=== PATIENT | male | born 1955 | race Caucasian/White ===

== ENCOUNTER 2018-08-21 15:04 | Emergency (ER) | payer OTHER ==
--- NOTE | 2018-08-21 15:14 | PDOC ---
Rapid Medical Evaluation Time Seen by Provider: 08/21/18 15:12 Medical Evaluation: Allergies Allergy/AdvReac Type Severity Reaction Status Date / Time No Known Allergies Allergy Verified 09/04/14 20:48 08/21/18 15:12 I have performed a brief in-person evaluation of the patient The patient presents with a chief complaint of: dizziness since Friday. Reports dizziness is triggered by change in position. Denies nausea, blurred vision , chest pain or shortness of breath Pertinent physical exam findings are: NAD heart S1s2 even and unlabored breathing no pedal edema I have ordered the following: Ekg, labs The patient will proceed to the ED for further evaluation. Discharge Disposition - Referrals Referrals: Ba Tesfaye MD [Primary Care Provider] - - Patient Instructions - Post Discharge Activity
[2018-08-21 15:16] VITALS: BMI 28.4
--- NOTE | 2018-08-21 15:50 | PDOC ---
History of Present Illness - General Chief Complaint: Lightheaded Stated Complaint: SENT BY PCP Time Seen by Provider: 08/21/18 15:12 History Source: Patient - History of Present Illness Initial Comments: The patient is 62M w/ a history of HLD, hypothyroidism, and HTN who presents from clinic for evaluation of bradycardia and 2 days of orthostatic dizziness. The patient reports dizziness described as lightheadedness w/o room spinning upon standing for the last 2 days. The patient denies being dizzy in the morning before taking his medications. But does not notice any particular association for when the symptoms begin. He is not able to specify anything that makes his symptoms better other than recumbency. He denies fevers/chills, chest pain, SOB, abdominal pain, palpitations, or changes in sensation. He has not had any recent changes in medication or doses of his current medications. He reports being compliant with his medications. He was seen today in clinic, found to be in sinus pallavi and then sent to ER for evaluation. 08/21/18 15:47 Past History - Past Medical History Allergies/Adverse Reactions: Allergies Allergy/AdvReac Type Severity Reaction Status Date / Time No Known Allergies Allergy Verified 09/04/14 20:48 Home Medications: Ambulatory Orders RX: Levothyroxine [Synthroid -] 25 mcg PO DAILY 08/18/12 RX: Simvastatin 40 mg PO HS 08/18/12 COPD: No Hypercholesterolemia: Yes Thyroid Disease: Yes - Suicide/Smoking/Psychosocial Hx Smoking Status: No Smoking History: Never smoked Number of Cigarettes Smoked Daily: 0 Review of Systems - Review of Systems Able to Perform ROS?: Yes Comments:: GENERAL/CONSTITUTIONAL: No fever or chills. No weakness HEAD, EYES, EARS, NOSE AND THROAT: No change in vision. No ear pain or discharge. No sore throat CARDIOVASCULAR: No chest pain or shortness of breath RESPIRATORY: No cough, wheezing, or hemoptysis GASTROINTESTINAL: No nausea, vomiting, diarrhea or constipation GENITOURINARY: No dysuria, frequency, or change in urination MUSCULOSKELETAL: No joint or muscle swelling or pain. No neck or back pain SKIN: No rash NEUROLOGIC: No headache, loss of consciousness, or change in strength/sensation ENDOCRINE: No increased thirst. No abnormal weight change HEMATOLOGIC/LYMPHATIC: No anemia, easy bleeding, or history of blood clots ALLERGIC/IMMUNOLOGIC: No hives or skin allergy 08/21/18 16:08 Is the patient limited Estonian proficient: No *Physical Exam - Vital Signs Last Vital Signs Temp Pulse Resp BP Pulse Ox 98.2 F 54 L 16 152/87 99 08/21/18 15:13 08/21/18 15:13 08/21/18 15:13 08/21/18 15:13 08/21/18 15:13 - Physical Exam Comments: GENERAL: Awake, alert, and fully oriented, in no acute distress HEAD: No signs of trauma, normocephalic, atraumatic EYES: PERRL, EOMI, sclera anicteric, conjunctiva clear ENT: Hearing grossly normal, nares patent, oropharynx clear without exudates. Moist mucosa NECK: Normal ROM, supple, no lymphadenopathy LUNGS: No distress, speaks full sentences, clear to auscultation bilaterally HEART: bradycardic with regular rhythm, normal S1 and S2, no murmurs appreciated , peripheral pulses normal and equal bilaterally ABDOMEN: Soft, nontender, normoactive bowel sounds. No guarding, no rebound EXTREMITIES : Normal inspection, Normal range of motion, no edema. No clubbing or cyanosis NEUROLOGICAL: Cranial nerves II through XII grossly intact. Normal speech, no focal sensorimotor deficits SKIN: Warm, Dry, normal turgor, no rashes or lesions noted 08/21/18 16:09 ED Treatment Course - LABORATORY CBC & Chemistry Diagram: 08/21/18 15:55 08/21/18 15:55 - RADIOLOGY Radiology Studies Ordered: Category Date Time Status CHEST PA & LAT [RAD] Stat Radiology 08/21/18 15:24 Ordered Medical Decision Making - Medical Decision Making The patient is a 62M w/ a history of HTN, hypothyroid, and HLD who presents with 2 days of orthostatic dizziness and sinus pallavi from clinic ED Course CMP, CBC, Trop I, Coags, TSH ECG, CXR Trop I neg No leukocytosis Lytes wnl ECG with sinus bradycardia CXR w/o evidence of PNA/PNX or mediastinal widening Plan for patient to be admitted for symptomatic bradycardia Patient does not wish to stay. The risks of leaving against medical advice were explained to the patient including worsening symptoms, injury due to his symptoms, and even . The patient verbalized understanding. He was also given follow up instructions as well as strict return precautions. The patient verbalized understanding. 08/21/18 17:48 *DC/Admit/Observation/Transfer Diagnosis at time of Disposition: Dizziness, Bradycardia - Discharge Dispostion Disposition: AGAINST MEDICAL ADVICE Condition at time of disposition: Good Decision to Admit order: No - Referrals Referrals: Ba Tesfaye MD [Primary Care Provider] - Phil Zambrano MD [Staff Physician] - Rhett Buchanan MD [Staff Physician] - Gabriel Martinez MD [Staff Physician] - - Patient Instructions Printed Discharge Instructions: DI for Bradycardia, DI for Dizziness-Nonvertigo Additional Instructions: You were seen today in the Emergency Department for dizziness and bradycardia ( slow heart rate). Please review the handouts provided. Please follow up with a Hack Driver and your primary care provider. Return to the Emergency Department if you develop fevers, headache, vision changes, chest pain, trouble breathing, vomiting, or any other new/concerning symptoms. - Post Discharge Activity
[2018-08-21 16:33] LABS: BASO % 0.5 % (0-2.0); EOS % 1.1 % (0-4.5); HEMATOCRIT 40.6 % (35.4-49); HEMOGLOBIN 13.7 GM/dL (11.7-16.9); LYMPH % 25.6 % (8-40); MCH 30.8 pg (25.7-33.7); MCHC 33.8 g/dl (32.0-35.9); MEAN PLT VOLUME 9.8 fl (7.5-11.1); MONO % 10.1 % (3.8-10.2); NEUT % 62.7 % (42.8-82.8); PLATELET COUNT 165 K/MM3 (134-434); RBC 4.46 M/mm3 (4.00-5.60); RDW 12.8 % (11.9-15.9); WHITE BLOOD COUNT 6.6 K/mm3 (4.0-10.0)
[2018-08-21 16:45] LABS: INR 1.04 (0.83-1.09); PROTHROMBIN TIME (PATIENT) 12.3 SEC (9.7-13.0)
[2018-08-21 16:48] LABS: ACTIVATED PTT 29.2 SECONDS (25.2-36.5)
[2018-08-21 16:56] LABS: ALBUMIN 3.9 g/dl (3.4-5.0); ALK PHOS 69 U/L (45-117); ANION GAP 9 MMOL/L (8-16); BILIRUBIN,TOTAL 0.5 mg/dL (0.2-1); BLOOD UREA NITROGEN 14 mg/dL (7-18); CALCIUM 8.8 mg/dL (8.5-10.1); CHLORIDE 106 mmol/L (98-107); CO2 26 mmol/L (21-32); CREATININE 0.8 mg/dL (0.55-1.3); GLUCOSE,RANDOM 134 mg/dL (74-106); POTASSIUM 3.9 mmol/L (3.5-5.1); SGOT/AST 15 U/L (15-37); SGPT/ALT 28 U/L (13-61); SODIUM 141 mmol/L (136-145)
--- NOTE | 2018-08-21 17:41 | PDOC ---
Attending Attestation - Resident Resident Name: Erasmo Pizano - ED Attending Attestation I have performed the following: I have examined & evaluated the patient, The case was reviewed & discussed with the resident, I agree w/resident's findings & plan, Exceptions are as noted - Physicial Exam PE: 08/21/18 17:40 GENERAL: The patient is in no acute distress. EYES: PERRLA, EOMI, sclera anicteric, conjunctiva clear. ENT: Ears normal, nares patent, oropharynx clear without exudates. Moist mucous membranes. NECK: Normal range of motion, supple LUNGS: Breath sounds equal, clear to auscultation bilaterally. No wheezes, and no crackles. HEART:Regular rate and rhythm, normal S1 and S2 without murmur, rub or gallop. ABDOMEN: Soft, nontender, normoactive bowel sounds. No guarding, no rebound. No masses palpable. EXTREMITIES: Normal range of motion NEUROLOGICAL: Cranial nerves II through XII grossly intact. Normal speech. No focal neurological deficits. MUSCULOSKELETAL: Back non-tender to palpation SKIN: Warm, Dry, normal turgor, no rashes or lesions noted. - Medical Decision Making 08/21/18 17:40 Laboratory Tests 08/21/18 08/21/18 08/21/18 15:55 15:55 15:55 WBC 6.6 Hgb 13.7 Hct 40.6 Plt Count 165 D INR 1.04 Sodium 141 Potassium 3.9 Chloride 106 Carbon Dioxide 26 BUN 14 Creatinine 0.8 Random Glucose 134 H Alkaline Phosphatase 69 Troponin I < 0.02 EKG: Normal sinus rhythm, rate of 50 bpm, axis is normal, intervals are normal, there are no ST elevations or depressions, T waves are upright No evidence of heart block Patient does not want to stay in the hospital. Despite the fact that he continues to feel lightheaded. Will leave AGAINST MEDICAL ADVICE <Shannen Spangler - Last Filed: 08/21/18 17:40> - HPI HPI: The patient is 62 year old male with a PMHx of HLD, hypothyroidism, and HTN who presents from clinic for evaluation of bradycardia and 2 days of orthostatic dizziness. Patient states that he experiences this dizziness during the day but states that it does not occur in the morning before taking his medication. He also notes that he sways when he walks. He reports that he is not dizzy when he is laying down but does become dizzy when sitting up or standing up quickly. He denies any recent changes in medications. Denies loss of consciousness, recent falls, denies room spinning sensation. Denies recent headache, blurry vision, chest pain, shortness of breath, fevers, recent trauma. Denies h/o TIAs , MIs, clots, or other cardiac history. Allergies: NKDA Medications: Synthroid, Metoprolol (is compliant) <Holly Guerra - Last Filed: 08/21/18 17:57>
[2018-08-21 17:59] VITALS: BP 138/83; PULSE 55; TEMP 98.1
--- NOTE | 2018-08-24 06:17 | EKG ---
Test Reason : Blood Pressure : / mmHG Vent. Rate : 050 BPM Atrial Rate : 050 BPM P-R Int : 126 ms QRS Dur : 096 ms QT Int : 442 ms P-R-T Axes : 016 044 039 degrees QTc Int : 402 ms POOR DATA QUALITY, INTERPRETATION MAY BE ADVERSELY AFFECTED SINUS BRADYCARDIA OTHERWISE NORMAL ECG WHEN COMPARED WITH ECG OF 04-SEP-2014 21:37, PREMATURE VENTRICULAR COMPLEXES ARE NO LONGER PRESENT Confirmed by FAYE PERAZA, BRITTANY ([id number]) on 08/24/2018 6:16:53 AM Referred By: Confirmed By:BRITTANY MCKINNEY MD
== END 2018-08-21 18:08 | disposition left against medical advice (07) ==
LOC: JER 15:04
DX: R00.1 Bradycardia, unspecified (principal); R42 Dizziness and giddiness; E78.5 Hyperlipidemia, unspecified; E03.9 Hypothyroidism, unspecified; I10 Essential (primary) hypertension
CPT/HCPCS: 36415; 70450-TC; 71046-TC-FY; 80053; 84443; 84484; 85025; 85610; 85730; 93005; 93010; 99284-25

== ENCOUNTER 2018-08-22 12:49 | Observation (INO) | payer OTHER ==
[2018-08-22 13:00] VITALS: TEMP 98.3; BMI 28.0
--- NOTE | 2018-08-22 13:03 | PDOC ---
History of Present Illness - General History Source: Patient Exam Limitations: No Limitations - History of Present Illness Initial Comments: 08/22/18 14:01 The patient is a 62 year old male with a significant PMH of hyperlipidemia, hypothyroidism, and hypertension who presents to the emergency department with episodes of lightheadedness and dizziness for several days. The patient was recently seen in the ED for similar complaints by which he states his symptoms have not dissipated since his last discharge. The patient states that when he stands up and walks he feel a sensation of unsteady gait and feels as if the room is spinning. He states that his symptoms are relieved when he sits or lays down. He denies any other symptoms. He denies any fever, chills nausea, vomiting , diarrhea, constipation, or urinary symptoms. He denies any chest pain, shortness of breath, headache. The patient denies any other complaints. PCP: Dr. Delgado <Gali José - Last Filed: 08/22/18 14:01> - General History Source: Patient Exam Limitations: No Limitations <Shannen Spangler - Last Filed: 08/24/18 08:31> - General Chief Complaint: Lightheaded Stated Complaint: Lightheaded Time Seen by Provider: 08/22/18 13:03 Past History <Gali José - Last Filed: 08/22/18 14:01> - Past Medical History Cardiac Disorders: Yes COPD: No DVT: No Hypercholesterolemia: Yes Thyroid Disease: Yes - Surgical History Appendectomy: Yes - Suicide/Smoking/Psychosocial Hx Smoking Status: No Smoking History: Never smoked Number of Cigarettes Smoked Daily: 0 Information on smoking cessation initiated: No Hx Alcohol Use: No Drug/Substance Use Hx: No Substance Use Type: None <Shannen Spangler - Last Filed: 08/24/18 08:31> - Past Medical History Allergies/Adverse Reactions: Allergies Allergy/AdvReac Type Severity Reaction Status Date / Time No Known Allergies Allergy Verified 08/22/18 12:57 Home Medications: Ambulatory Orders Levothyroxine [Synthroid -] 25 mcg PO DAILY 08/18/12 Simvastatin 40 mg PO HS 08/18/12 Diazepam [Valium] 2 mg PO Q12H PRN #10 tablet MDD 2 08/22/18 Review of Systems - Review of Systems Able to Perform ROS?: Yes Comments:: 08/22/18 14:01 GENERAL/CONSTITUTIONAL: No fever or chills. No weakness. HEAD, EYES, EARS, NOSE AND THROAT: No change in vision. No ear pain or discharge. No sore throat. CARDIOVASCULAR: No chest pain or shortness of breath. RESPIRATORY: No cough, wheezing, or hemoptysis. GASTROINTESTINAL: No nausea, vomiting, diarrhea or constipation. GENITOURINARY: No dysuria, frequency, or change in urination. MUSCULOSKELETAL: No joint or muscle swelling or pain. No neck or back pain. SKIN: No rash NEUROLOGIC:(+) lightheaded and dizziness.No headache, vertigo, loss of consciousness, or change in strength/sensation. ENDOCRINE: No increased thirst. No abnormal weight change. HEMATOLOGIC/LYMPHATIC: No anemia, easy bleeding, or history of blood clots. ALLERGIC/IMMUNOLOGIC: No hives or skin allergy. <Gali José - Last Filed: 08/22/18 14:01> *Physical Exam - Vital Signs Last Vital Signs Temp Pulse Resp BP Pulse Ox 98.3 F 56 L 18 144/79 100 08/22/18 12:57 08/22/18 13:34 08/22/18 12:57 08/22/18 13:34 08/22/18 12:57 - Physical Exam Comments: 08/22/18 14:01 GENERAL: (+)ataxia with ambulation. The patient is in no acute distress. HEAD: Normal with no signs of trauma. EYES: PERRLA, EOMI, sclera anicteric, conjunctiva clear. ENT: Ears normal, nares patent, oropharynx clear without exudates. Moist mucous membranes. NECK: Normal range of motion, supple without lymphadenopathy, JVD, or masses. LUNGS: Breath sounds equal, clear to auscultation bilaterally. No wheezes, and no crackles. HEART:Regular rate and rhythm, normal S1 and S2 without murmur, rub or gallop. ABDOMEN: Soft, nontender, normoactive bowel sounds. No guarding, no rebound. No masses palpable. EXTREMITIES: Normal range of motion, no edema. No clubbing or cyanosis. No erythema, or tenderness. NEUROLOGICAL: (+)standing up elicits lightheadedness. Cranial nerves II through XII grossly intact. Normal speech. No focal neurological deficits. MUSCULOSKELETAL: Back non-tender to palpation, no CVA tenderness SKIN: Warm, Dry, normal turgor, no rashes or lesions noted. <Gali José - Last Filed: 08/22/18 14:01> - Vital Signs Last Vital Signs Temp Pulse Resp BP Pulse Ox 98.3 F 57 L 18 146/83 100 08/22/18 12:57 08/22/18 12:57 08/22/18 12:57 08/22/18 12:57 08/22/18 12:57 <Sahnnen Spangler - Last Filed: 08/24/18 08:31> ED Treatment Course - LABORATORY CBC & Chemistry Diagram: 08/22/18 13:22 08/22/18 13:22 - ADDITIONAL ORDERS Additional order review: 08/22/18 13:22 RBC 4.60 MCV 91.1 MCHC 33.7 RDW 12.9 MPV 10.0 Neutrophils % 58.9 Lymphocytes % 28.5 Monocytes % 10.4 H Eosinophils % 1.5 Basophils % 0.7 - Medications Given in the ED: ED Medications Discontinued Medications Generic Name Dose Route Start Last Admin Trade Name Nuha PRN Reason Stop Dose Admin Meclizine HCl 25 mg 08/22/18 13:17 08/22/18 13:23 Antivert - PO 08/22/18 13:18 25 mg ONCE ONE Administration <Gali José - Last Filed: 08/22/18 14:01> - LABORATORY CBC & Chemistry Diagram: 08/22/18 13:22 08/22/18 13:22 <Shannen Spangler - Last Filed: 08/24/18 08:31> Medical Decision Making - Medical Decision Making Pt returns to the ER with same complaints from yesterday Pt feels unsteady when walking No headache Symptoms worsen when he stands - no orthostasis demonstrated on vitals No tinnitus Twelve-lead EKG was performed and reviewed by me. There is normal sinus rhythm with a rate of 53 bpm. The axis is normal. The intervals are normal. There are no ST or T wave abnormalities. Impression: Normal twelve-lead EKG 08/22/18 14:45 Laboratory Tests 08/22/18 08/22/18 13:22 13:22 WBC 7.3 Hgb 14.1 Hct 41.9 Plt Count 174 BUN 17 Creatinine 0.9 Random Glucose 174 H Creatine Kinase 115 Troponin I < 0.02 Re assessed Only slight improvement in dysequilibrium with Meclizine Will give Valium Tried again to get this patient to stay for observation to the hospital Pt refuses Would like to get MRI as this could be BPPV, Labrynthitis but given his age, could be ischemia of the posterior circulation Pt refusing to stay despite repeated requests by family He states that he has to work... on friday Call placed to neuro Will re assess after valium 08/22/18 14:46 08/22/18 16:31 Pt daughter convinced him to stay for further assessment Place on observation (discussed with SADIE Brothers) Pt seen in the ER by Dr Hawkins MRI ordered by SADIE Brothers clinical impression: dysequilibrium, initial presentation <Shannen Spangler - Last Filed: 08/24/18 08:31> *DC/Admit/Observation/Transfer - Attestations Scribe Attestion: 08/22/18 14:01 Documentation prepared by Gali José, acting as manager medical for Shannen Spangler MD. <Gali José - Last Filed: 08/22/18 14:01> - Discharge Dispostion Decision to Admit order: Yes <Shannen Spangler - Last Filed: 08/24/18 08:31> Diagnosis at time of Disposition: Dizziness - Discharge Dispostion Disposition: HOME Condition at time of disposition: Improved
[2018-08-22] MEDS ORDERED: SODIUM CHLORIDE 1,000 ML IV STA (13:17)
[2018-08-22] MEDS ORDERED: MECLIZINE HCL 25 MG TABLET (FP) PO ONE (13:17)
[2018-08-22] MEDS ORDERED: MECLIZINE HCL 25 MG TABLET (FP) ONE (13:23)
[2018-08-22 13:35] VITALS: BP 144/79; PULSE 56
[2018-08-22 13:40] LABS: BASO % 0.7 % (0-2.0); EOS % 1.5 % (0-4.5); HEMATOCRIT 41.9 % (35.4-49); HEMOGLOBIN 14.1 GM/dL (11.7-16.9); LYMPH % 28.5 % (8-40); MCH 30.7 pg (25.7-33.7); MCHC 33.7 g/dl (32.0-35.9); MEAN CELL VOLUME 91.1 fl (80-96); MONO % 10.4 % (3.8-10.2); NEUT % 58.9 % (42.8-82.8); PLATELET COUNT 174 K/MM3 (134-434); RDW 12.9 % (11.9-15.9); WHITE BLOOD COUNT 7.3 K/mm3 (4.0-10.0)
[2018-08-22 14:02] LABS: ALBUMIN 3.8 g/dl (3.4-5.0); ALK PHOS 74 U/L (45-117); ANION GAP 5 MMOL/L (8-16); BILIRUBIN,TOTAL 0.3 mg/dL (0.2-1); BLOOD UREA NITROGEN 17 mg/dL (7-18); CALCIUM 8.8 mg/dL (8.5-10.1); CHLORIDE 106 mmol/L (98-107); CO2 27 mmol/L (21-32); CREATININE 0.9 mg/dL (0.55-1.3); GLUCOSE,RANDOM 174 mg/dL (74-106); POTASSIUM 4.5 mmol/L (3.5-5.1); SGOT/AST 24 U/L (15-37); SGPT/ALT 28 U/L (13-61); SODIUM 139 mmol/L (136-145); TOT PROT 7.2 g/dl (6.4-8.2)
[2018-08-22] MEDS ORDERED: diazePAM 2 MG TABLET PO ONE (14:44)
[2018-08-22] MEDS ORDERED: diazePAM 2 MG TABLET ONE (14:46)
--- NOTE | 2018-08-22 16:50 | CON.NEURO ---
Consult - Alcohol/Substance Use Hx Alcohol Use: No - Smoking History Smoking history: Never smoked Aproximately how many cigarettes per day: 0 Home Medications - Allergies Allergies/Adverse Reactions: Allergies Allergy/AdvReac Type Severity Reaction Status Date / Time No Known Allergies Allergy Verified 08/22/18 12:57 - Home Medications Home Medications: Ambulatory Orders Levothyroxine [Synthroid -] 25 mcg PO DAILY 08/18/12 Simvastatin 40 mg PO HS 08/18/12 Physical Exam-Neuro Vital Signs: Vital Signs Temperature 98.3 F 08/22/18 12:57 Pulse Rate 56 L 08/22/18 13:34 Respiratory Rate 18 08/22/18 12:57 Blood Pressure 144/79 08/22/18 13:34 O2 Sat by Pulse Oximetry (%) 100 08/22/18 12:57 Labs: CBC, BMP 08/22/18 13:22 08/22/18 13:22 Assessment/Plan cc Feeling of dysbalance for three days HPI 62 year old male history of HLD,Hypothyroidism, HTN. He takes metoprolol, synthroid and simvastatin as outpatient. Since august 19 , she is having feeling of dysbalance with swaying to right side. He denies any dysphagia, dysarthria, diplopia, wekanes or numbnes, no nausea or vomiting. He came to ed and went home and he had ct head unremarkable. He was found to be bradycardiac. 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 PMH as above Fhx,Surgical History, ROS reviewed NKDA Levothyroxine [Synthroid -] 25 mcg PO DAILY 08/18/12 Simvastatin 40 mg PO HS 08/18/12 Metroprolol xr 25 mg once a day Neurological Examination Alert oriented x 3, speech is normal eomi, pupils reactive, no face asymmetry 5/5 all ext sensation is normal FTN, HTS is normal, no nystagmus was seen CT head is normal Assessment- Most likley to be Labrinthine dysfunction, Less likley to be brain stem stroke , suggest to do mri of brain as he came back second time and he has risk factor for stroke( age, htn,hld) Other possibility it bradycardia related, work up as per ED team and consider stopping metoprolol Plan- mri of brain without contrst - once mri of brain he can follow up as outpatient and need PT , can be discharged once cleared from Cardiac point of view Thanking you so much Derek Gibbons MD
--- NOTE | 2018-08-22 17:38 | HP ---
CHIEF COMPLAINT: Lightheadedness PCP: Dr. Tesfaye HISTORY OF PRESENT ILLNESS: The patient is a 62 year old male with a significant PMH of hyperlipidemia, hypothyroidism, and hypertension who presents to the emergency department with complaint of lightheadedness and dizziness for several days. The patient was seen in ED yesterday for the same complaint, CT head was normal and patient signed out AMA. He presented again today because the symptoms have persisted. The patient states that when he stands up and walks he feel a sensation of unsteady gait and feels as if the room is spinning. He states that his symptoms are relieved when he sits or lays down. He denies any other symptoms. He denies any fever, chills nausea, vomiting, diarrhea, constipation, or urinary symptoms. He denies any chest pain, shortness of breath, headache. The patient denies any other complaints. ER course was notable for: (1) 08/21 CT head: no acute pathology (2) Not orthostatic (3) ECG sinus pallavi @53bpm Recent Travel: No PAST MEDICAL HISTORY: Hypertension Hyperlipidemia Hypothyroidism PAST SURGICAL HISTORY: Appendectomy Social History: Smoking: no Alcohol: no Drugs: no Family History: mother with diabetes, father no significant history Allergies No Known Allergies Allergy (Verified 08/22/18 12:57) HOME MEDICATIONS: Home Medications Medication Instructions Recorded Levothyroxine [Synthroid -] 25 mcg PO DAILY 08/18/12 Simvastatin 40 mg PO HS 08/18/12 REVIEW OF SYSTEMS CONSTITUTIONAL: Absent: fever, chills, diaphoresis, generalized weakness, malaise, loss of appetite, weight change HEENT: Absent: rhinorrhea, nasal congestion, throat pain, throat swelling, difficulty swallowing, mouth swelling, ear pain, eye pain, visual changes CARDIOVASCULAR: Absent: chest pain, syncope, palpitations, irregular heart rate, lightheadedness , peripheral edema RESPIRATORY: Absent: cough, shortness of breath, dyspnea with exertion, orthopnea, wheezing, stridor, hemoptysis GASTROINTESTINAL: Absent: abdominal pain, abdominal distension, nausea, vomiting, diarrhea, constipation, melena, hematochezia GENITOURINARY: Absent: dysuria, frequency, urgency, hesitancy, hematuria, flank pain, genital pain MUSCULOSKELETAL: Absent: myalgia, arthralgia, joint swelling, back pain, neck pain SKIN: Absent: rash, itching, pallor HEMATOLOGIC/IMMUNOLOGIC: Absent: easy bleeding, easy bruising, lymphadenopathy, frequent infections ENDOCRINE: Absent: unexplained weight gain, unexplained weight loss, heat intolerance, cold intolerance NEUROLOGIC: +lightheadedness, dizziness Absent: headache, focal weakness or paresthesias, unsteady gait, seizure, mental status changes, bladder or bowel incontinence PSYCHIATRIC: Absent: anxiety, depression, suicidal or homicidal ideation, hallucinations. PHYSICAL EXAMINATION Vital Signs - 24 hr 08/22/18 08/22/18 12:57 13:34 Temperature 98.3 F Pulse Rate 57 L Pulse Rate [ 57 L Left side Sitting] Pulse Rate [ 57 L Left side Standing] Pulse Rate [ 56 L Left side Supine] Respiratory 18 Rate Blood Pressure 146/83 Blood Pressure 139/82 [Left side Sitting] Blood Pressure 137/82 [Left side Standing] Blood Pressure 144/79 [Left side Supine] O2 Sat by Pulse 100 Oximetry (%) GENERAL: Awake, alert, and fully oriented, in no acute distress. HEAD: Normal with no signs of trauma. EYES: Pupils equal, round and reactive to light, extraocular movements intact, sclera anicteric, conjunctiva clear. No lid lag. EARS, NOSE, THROAT: Ears normal, nares patent, oropharynx clear without exudates. Moist mucous membranes. NECK: Normal range of motion, supple without lymphadenopathy, JVD, or masses. LUNGS: Breath sounds equal, clear to auscultation bilaterally. No wheezes, and no crackles. No accessory muscle use. HEART: Regular rate and rhythm, normal S1 and S2 ABDOMEN: Soft, nontender, not distended MUSCULOSKELETAL: Normal range of motion at all joints. No bony deformities or tenderness. No CVA tenderness. UPPER EXTREMITIES: 2+ pulses, warm, well-perfused. No cyanosis. No clubbing. No peripheral edema. LOWER EXTREMITIES: 2+ pulses, warm, well-perfused. No calf tenderness. No peripheral edema. NEUROLOGICAL: Cranial nerves II-XII intact. Normal speech. Laboratory Results - last 24 hr 08/22/18 08/22/18 13:22 13:22 WBC 7.3 RBC 4.60 Hgb 14.1 Hct 41.9 MCV 91.1 MCH 30.7 MCHC 33.7 RDW 12.9 Plt Count 174 MPV 10.0 Absolute Neuts (auto) 4.3 Neutrophils % 58.9 Lymphocytes % 28.5 Monocytes % 10.4 H Eosinophils % 1.5 Basophils % 0.7 Nucleated RBC % 0 Sodium 139 Potassium 4.5 Chloride 106 Carbon Dioxide 27 Anion Gap 5 L BUN 17 Creatinine 0.9 Creat Clearance w eGFR > 60 Random Glucose 174 H Calcium 8.8 Total Bilirubin 0.3 AST 24 ALT 28 Alkaline Phosphatase 74 Creatine Kinase 115 Troponin I < 0.02 Total Protein 7.2 Albumin 3.8 ASSESSMENT/PLAN 62 year-old male with a PMH significant for HTN, HLD, and hypothyroidism, placed on observation for lightheadedness. Lightheadedness --seen and evaluated by neuro; likely labrinthine dysfunction; get MRI to r/ o brain stem stroke given risk factors (age, HTN, HLD); if OK, can follow up as outpatient --symptomatic improvement with meclizine and valium Hypertension --BP stable --not orthostatic --asymptomatic bradycardia Hyperlipidemia --continue Lipitor Hypothyroidism --continue levothyroxine Visit type - Emergency Visit Emergency Visit: Yes ED Registration Date: 08/22/18 Care time: The patient presented to the Emergency Department on the above date and was hospitalized for further evaluation of their emergent condition. - New Patient This patient is new to me today: Yes Date on this admission: 08/29/18 - Critical Care Critical Care patient: No
[2018-08-22] MEDS ORDERED: ATORVASTATIN CA 20 MG TABLET (FP) PO SCH (22:00)
[2018-08-22] MEDS ORDERED: PATIENT'S OWN MEDICATION (NON-FORMULARY) (Simvastatin [Simvastatin] 40 MG) PO SCH (22:00)
--- NOTE | 2018-08-22 22:41 | DS ---
Physical Exam: SUBJECTIVE: Patient seen and examined. Feels better. Lightheadedness almost completely resolved. OBJECTIVE: Vital Signs Period Temp Pulse Resp BP Sys/Bryant Pulse Ox Last 24 Hr 98.3 F 56-57 18 137-146/79-83 100 PHYSICAL EXAM GENERAL: The patient is awake, alert, and fully oriented, in no acute distress. HEAD: Normal with no signs of trauma. EYES: PERRL, extraocular movements intact, sclera anicteric, conjunctiva clear. ENT: Ears normal, nares patent, oropharynx clear without exudates, moist mucous membranes. NECK: Trachea midline, full range of motion, supple. LUNGS: Breath sounds equal, clear to auscultation bilaterally, no wheezes, no crackles, no accessory muscle use. HEART: Regular rate and rhythm, S1, S2 without murmur, rub or gallop. ABDOMEN: Soft, nontender, nondistended, normoactive bowel sounds, no guarding, no rebound, no hepatosplenomegaly, no masses. EXTREMITIES: 2+ pulses, warm, well-perfused, no edema. NEUROLOGICAL: Cranial nerves II through XII grossly intact. Normal speech LABS Laboratory Results - last 24 hr 08/22/18 08/22/18 13:22 13:22 WBC 7.3 RBC 4.60 Hgb 14.1 Hct 41.9 MCV 91.1 MCH 30.7 MCHC 33.7 RDW 12.9 Plt Count 174 MPV 10.0 Absolute Neuts (auto) 4.3 Neutrophils % 58.9 Lymphocytes % 28.5 Monocytes % 10.4 H Eosinophils % 1.5 Basophils % 0.7 Nucleated RBC % 0 Sodium 139 Potassium 4.5 Chloride 106 Carbon Dioxide 27 Anion Gap 5 L BUN 17 Creatinine 0.9 Creat Clearance w eGFR > 60 Random Glucose 174 H Calcium 8.8 Total Bilirubin 0.3 AST 24 ALT 28 Alkaline Phosphatase 74 Creatine Kinase 115 Troponin I < 0.02 Total Protein 7.2 Albumin 3.8 HOSPITAL COURSE: Date of Admission:08/22/18 Date of Discharge: 08/22/18 Pre hospital course The patient is a 62 year old male with a significant PMH of hyperlipidemia, hypothyroidism, and hypertension who presents to the emergency department with complaint of lightheadedness and dizziness for several days. The patient was seen in ED yesterday for the same complaint, CT head was normal and patient signed out AMA. He presented again today because the symptoms have persisted. The patient states that when he stands up and walks he feel a sensation of unsteady gait and feels as if the room is spinning. He states that his symptoms are relieved when he sits or lays down. He denies any other symptoms. He denies any fever, chills nausea, vomiting, diarrhea, constipation, or urinary symptoms. He denies any chest pain, shortness of breath, headache. The patient denies any other complaints. ER course was notable for: (1) 08/21 CT head: no acute pathology (2) Not orthostatic (3) ECG sinus pallavi @53bpm 62 year-old male with a PMH significant for HTN, HLD, and hypothyroidism, placed on observation for lightheadedness. Lightheadedness likely secondary to benign positional vertigo --seen and evaluated by neuro; likely labrinthine dysfunction --08/21 CT head and 08/22 MRI brain: no acute pathology --symptomatic improvement with meclizine and valium --patient cautioned not to drive when feeling dizzy or when taking valium Hypertension --BP stable --not orthostatic --asymptomatic bradycardia Hyperlipidemia --continue Lipitor Hypothyroidism --continue levothyroxine Minutes to complete discharge: 35 Discharge Summary Reason For Visit: DIZZINESS Current Active Problems Dizziness (Acute) Condition: Improved - Instructions Diet, Activity, Other Instructions: You should not drive when feeling dizzy. You should not drive when taking valium. Return to the emergency department for any new or worsening symptoms. Referrals: Ba Tesfaye MD [Primary Care Provider] - Disposition: HOME - Home Medications Comprehensive Discharge Medication List: Ambulatory Orders Levothyroxine [Synthroid -] 25 mcg PO DAILY 08/18/12 Simvastatin 40 mg PO HS 08/18/12 Diazepam [Valium] 2 mg PO Q12H PRN #10 tablet MDD 2 08/22/18 This patient is new to me today: No Emergency Visit: Yes ED Registration Date: 08/22/18 Care time: The patient presented to the Emergency Department on the above date and was hospitalized for further evaluation of their emergent condition. Critical Care patient: No - Discharge Referral Referred to [facility] Yes Physician Referral: Ba Smalls MD ([facility])
--- NOTE | 2018-08-22 23:02 | EKG ---
Test Reason : Blood Pressure : / mmHG Vent. Rate : 053 BPM Atrial Rate : 053 BPM P-R Int : 162 ms QRS Dur : 096 ms QT Int : 426 ms P-R-T Axes : 068 031 036 degrees QTc Int : 399 ms POOR DATA QUALITY, INTERPRETATION MAY BE ADVERSELY AFFECTED SINUS BRADYCARDIA OTHERWISE NORMAL ECG WHEN COMPARED WITH ECG OF 04-SEP-2014 21:37, PREMATURE VENTRICULAR COMPLEXES ARE NO LONGER PRESENT Confirmed by FAYE PERAZA, BRITTANY ([id number]) on 08/22/2018 11:01:59 PM Referred By: Confirmed By:BRITTANY MCKINNEY MD
[2018-08-23] MEDS ORDERED: LEVOTHYROXINE NA 25 MCG TABLET (FP) PO SCH (07:00)
== END 2018-08-22 21:10 | disposition home or self-care (01) ==
LOC: JER 12:49 → JERBED 16:56
PROVIDERS: ADMIT Hospitalist; ATTEND Nurse Practitioner Acute Care
PROC: 3E0337Z Introduction of Electrolytic and Water Balance Substance into Peripheral Vein, Percutaneous Approach (ICD-10-PCS; principal; 2018-08-22)
DX: R42 Dizziness and giddiness (principal); I10 Essential (primary) hypertension; E78.5 Hyperlipidemia, unspecified; E03.9 Hypothyroidism, unspecified
CPT/HCPCS: 36415; 70551-TC; 80053; 82550; 84484; 85025; 93005; 93010; 96360; 99284-25; G0378; J7030

== ENCOUNTER 2022-10-30 01:32 | Emergency (ER) | payer OTHER ==
[2022-10-30 02:06] VITALS: BP 162/83; PULSE 66; RESP 20; TEMP 98; BMI 27.5
[2022-10-30] MEDS ORDERED: LACTATED RINGERS SOLUTION 1000 ML INFUS.BAG IV ONE (02:40)
[2022-10-30] MEDS ORDERED: ONDANSETRON 4 MG/2 ML VIAL IVPUSH ONE (02:40)
[2022-10-30] MEDS ORDERED: morphine SULFATE 4 MG/ML VIAL IVPUSH ONE (02:40)
[2022-10-30] MEDS ORDERED: ONDANSETRON 4 MG/2 ML VIAL ONE (03:01)
[2022-10-30] MEDS ORDERED: morphine SULFATE 4 MG/ML VIAL ONE (03:01)
[2022-10-30] MEDS ORDERED: KETOROLAC TROMETHAMINE 15 MG/ML VIAL IVPUSH ONE (03:16)
[2022-10-30] MEDS ORDERED: KETOROLAC TROMETHAMINE 15 MG/ML VIAL ONE (03:25)
[2022-10-30 03:43] LABS: BASO % 0.4 % (0-2.0); EOS % 0.8 % (0-4.5); HEMATOCRIT 39.6 % (35.4-49); HEMOGLOBIN 13.5 GM/dL (11.7-16.9); LYMPH % 7.6 % (8-40); MCH 30.9 pg (25.7-33.7); MEAN PLT VOLUME 9.9 fl (7.5-11.1); MONO % 15.5 % (3.8-10.2); NEUT % 75.7 % (42.8-82.8); PLATELET COUNT 129 10^3/uL (134-434); RBC 4.36 M/mm3 (4.00-5.60); RDW 13.1 % (11.9-15.9); WHITE BLOOD COUNT 7.7 K/mm3 (4.0-10.0)
[2022-10-30 03:45] LABS: EPI CELLS 1 /uL (0-25.1); HYALINE CASTS 0 /uL (0-3.1); URINE APPEARANCE CLEAR; URINE BACTERIA 1 /uL (0-1359); URINE BILIRUBIN NEGATIVE (NEGATIVE); URINE COLOR YELLOW; URINE GLUCOSE (UA) NEGATIVE (NEGATIVE); URINE KETONE 2+ (NEGATIVE); URINE LEUK ESTERASE NEGATIVE (NEGATIVE); URINE NITRITE NEGATIVE (NEGATIVE); URINE PROTEIN NEGATIVE (NEGATIVE); URINE RBC 62 /uL (0-23.9); URINE UROBILINOGEN 0.2 mg/dL (0.2-1.0); URINE WBC 2 /uL (0-25.8)
[2022-10-30 03:51] LABS: INR 1.14 (0.83-1.09); PROTHROMBIN TIME (PATIENT) 13.1 SEC (9.7-13.0)
[2022-10-30 03:54] LABS: ACTIVATED PTT 28.8 SECONDS (25.2-36.5)
[2022-10-30 04:03] LABS: BLOOD UREA NITROGEN 19.7 mg/dL (7-18); CALCIUM 8.8 mg/dL (8.5-10.1)
[2022-10-30 04:07] LABS: CREATININE 1.1 mg/dL (0.55-1.3)
[2022-10-30 04:08] LABS: BILIRUBIN,TOTAL 0.4 mg/dL (0.2-1); TOT PROT 7.1 g/dl (6.4-8.2)
[2022-10-30 06:51] LABS: URINE CRYSTALS FEW /hpf
== END 2022-10-30 04:59 | disposition home or self-care (01) ==
LOC: JER 01:32
PROC: 3E033GC Introduction of Other Therapeutic Substance into Peripheral Vein, Percutaneous Approach (ICD-10-PCS; principal; 2022-10-30)
DX: N13.2 Hydronephrosis with renal and ureteral calculous obstruction (principal)
CPT/HCPCS: 74176-TC; 80053; 81003; 84484; 85025; 85610; 85730; 93005; 93010; 99285-25

== ENCOUNTER 2024-07-25 15:28 | Emergency (ER) | payer OTHER ==
[2024-07-25 15:41] VITALS: BP 174/79; PULSE 51; RESP 16; TEMP 97.7; BMI 27.6
[2024-07-25] MEDS ORDERED: ONDANSETRON 4 MG/2 ML VIAL ONE (16:12)
[2024-07-25] MEDS ORDERED: KETOROLAC TROMETHAMINE 15 MG/ML VIAL ONE (16:12)
[2024-07-25 16:15] LABS: BASO % 0.4 % (0-2.0); EOS % 0.7 % (0-4.5); HEMOGLOBIN 14.2 GM/dL (11.7-16.9); LYMPH % 16.8 % (8-40); MCH 31.5 pg (25.7-33.7); MCHC 33.9 g/dl (32.0-35.9); MEAN CELL VOLUME 92.8 fl (80-96); MEAN PLT VOLUME 9.9 fl (7.5-11.1); MONO % 8.6 % (3.8-10.2); NEUT % 73.5 % (42.8-82.8); PLATELET COUNT 175 10^3/uL (134-434); RBC 4.53 M/mm3 (4.00-5.60); RDW 13.4 % (11.9-15.9); WHITE BLOOD COUNT 9.7 K/mm3 (4.0-10.0)
[2024-07-25] MEDS: KETOROLAC TROMETHAMINE 30 MG/1 ML VIAL IVPUSH ONE (16:21)
[2024-07-25] MEDS: ONDANSETRON 4 MG/2 ML VIAL IVPUSH ONE (16:21)
[2024-07-25] MEDS: SODIUM CHLORIDE 0.9% 1000 ML INFUS.BAG IV ONE ×2 (16:21→17:36)
[2024-07-25 16:42] LABS: POTASSIUM 3.9 mmol/L (3.5-5.1)
[2024-07-25 16:43] LABS: BLOOD UREA NITROGEN 21.5 mg/dL (7-18); CALCIUM 9.6 mg/dL (8.5-10.1)
[2024-07-25] MEDS ORDERED: TAMSULOSIN HCL 0.4 MG CAP ONE (17:31)
[2024-07-25] MEDS: TAMSULOSIN HCL 0.4 MG CAP PO ONE (17:36)
[2024-07-25 18:19] LABS: EPI CELLS 2 /uL (0-25.1); HYALINE CASTS 1 /uL (0-3.1); PH,URINE 5.5 (5.0-8.0); URINE APPEARANCE CLEAR; URINE BACTERIA 11 /uL (0-1359); URINE BILIRUBIN NEGATIVE (NEGATIVE); URINE COLOR YELLOW; URINE GLUCOSE (UA) NEGATIVE (NEGATIVE); URINE KETONE TRACE (NEGATIVE); URINE LEUK ESTERASE NEGATIVE (NEGATIVE); URINE NITRITE NEGATIVE (NEGATIVE); URINE PROTEIN TRACE (NEGATIVE); URINE RBC 292 /uL (0-23.9); URINE UROBILINOGEN 0.2 mg/dL (0.2-1.0); URINE WBC 6 /uL (0-25.8)
== END 2024-07-25 19:35 | disposition home or self-care (01) ==
LOC: JER 15:28
PROC: 3E0333Z Introduction of Anti-inflammatory into Peripheral Vein, Percutaneous Approach (ICD-10-PCS; principal; 2024-07-25)
PROC: 3E033GC Introduction of Other Therapeutic Substance into Peripheral Vein, Percutaneous Approach (ICD-10-PCS; 2024-07-25)
DX: N13.2 Hydronephrosis with renal and ureteral calculous obstruction (principal); R10.9 Unspecified abdominal pain
CPT/HCPCS: 36415; 74176-TC; 80048; 81003; 85025; 96374; 96375; 99284-25

== ENCOUNTER 2024-08-09 04:19 | Day surgery (SDC) | payer OTHER ==
[2024-08-06 09:58] VITALS: BMI 27.9
[2024-08-09 07:10] VITALS: RESP 20
[2024-08-09] MEDS ORDERED: MIDAZOLAM HCL 2 MG/2 ML SINGLE DOSE VIAL ONE (09:44)
[2024-08-09] MEDS ORDERED: ONDANSETRON 4 MG/2 ML VIAL ONE (09:44)
[2024-08-09 12:07] VITALS: PULSE 52; TEMP 97.5
[2024-08-09 12:10] VITALS: BP 130/70
== END 2024-08-09 11:45 | disposition home or self-care (01) ==
LOC: JASU-SURG 04:19
PROVIDERS: ATTEND Urology
PROC: 0TF3XZZ Fragmentation in Right Kidney Pelvis, External Approach (ICD-10-PCS; principal; 2024-08-09 10:29)
DX: N20.0 Calculus of kidney (principal)

== ENCOUNTER 2024-09-27 05:28 | Day surgery (SDC) | payer OTHER ==
[2024-09-24 13:49] VITALS: BMI 26.4
[2024-09-27 10:16] VITALS: TEMP 97.3
[2024-09-27 10:43] VITALS: RESP 15
[2024-09-27 11:38] VITALS: BP 135/70; PULSE 68
== END 2024-09-27 10:55 | disposition home or self-care (01) ==
LOC: JASU-ENDO 05:28
PROVIDERS: ATTEND Internal Medicine Gastroenterology
PROC: 0DBL8ZX Excision of Transverse Colon, Via Natural or Artificial Opening Endoscopic, Diagnostic (ICD-10-PCS; 2024-09-27)
PROC: 0DBL8ZX Excision of Transverse Colon, Via Natural or Artificial Opening Endoscopic, Diagnostic (ICD-10-PCS; principal; 2024-09-27 09:00)
DX: D12.3 Benign neoplasm of transverse colon (principal); K63.5 Polyp of colon; K64.8 Other hemorrhoids
CPT/HCPCS: 88305-TC

== ENCOUNTER 2024-10-08 09:35 | Emergency (ER) | payer OTHER ==
[2024-10-08 09:52] VITALS: BP 161/65; PULSE 55; RESP 18; TEMP 97.4; BMI 25.7
[2024-10-08] MEDS ORDERED: MECLIZINE HCL 25 MG TABLET (FP) ONE (11:14)
[2024-10-08] MEDS: MECLIZINE HCL 25 MG TABLET (FP) PO ONE (11:22)
== END 2024-10-08 11:58 | disposition home or self-care (01) ==
LOC: JER 09:35
DX: R42 Dizziness and giddiness (principal)
CPT/HCPCS: 93005; 93010; 99283-25